=== PATIENT | female | born 1995 | race Caucasian/White ===

== ENCOUNTER → 2018-04-04 | Outpatient (CLI) | payer OTHER ==
--- NOTE | 2018-04-04 17:33 | XR ---
EXAMINATION TYPE: XR finger LT DATE OF EXAM: 04/04/2018 COMPARISON: NONE HISTORY: Injury and pain TECHNIQUE: 3 views FINDINGS: I see no fracture nor dislocation. Joint spaces are normal. There are no pathologic calcifi cations. IMPRESSION: Negative left index finger exam.
== END | disposition home or self-care (01) ==
LOC: RADXRMAIN 16:49
PROVIDERS: ATTEND Emergency Medicine
DX: S67.191A Crushing injury of left index finger, initial encounter (principal)

== ENCOUNTER 2020-10-03 16:55 | Emergency (ER) | payer OTHER ==
[2020-10-03 17:40] VITALS: RESP 18
[2020-10-03 19:04] LABS: Appearance,Urine Clear (Clear); Bacteria,Urine Rare /hpf; Bilirubin,Urine Negative (Negative); Blood,Urine Small (Negative); Color,Urine Light Yellow; Glucose,Urine (UA) Negative (Negative); Ketones,Urine Negative (Negative); Leukocyte Esterase,Urine Negative (Negative); Nitrite,Urine Negative (Negative); PH, Urine 6.5 (5.0-8.0); Protein,Urine Negative (Negative); RBC,Urine 1 /hpf (0-5); Specific Gravity,Urine 1.009 (1.001-1.035); Squamous Epithelial Cell,Urine <1 /hpf (0-4); Urobilinogen,Urine <2.0 mg/dL (<2.0); WBC,Urine 2 /hpf (0-5)
--- NOTE | 2020-10-03 19:28 | ED ---
Female Urogenital HPI - General Chief complaint: Urogenital Stated complaint: bladder problems Time Seen by Provider: 10/03/20 18:30 Source: patient Mode of arrival: ambulatory Limitations: no limitations - History of Present Illness Initial comments: Patient is a 25-year-old female, currently 25 weeks , presenting to the emergency Department with concerns of frequency over the past week and a half. Patient states she has been on Keflex and number of times, most recent was one week ago. She states she continues to have frequency and urgency. She denies any dysuria, no vaginal bleeding. She denies any nausea or vomiting, no fevers or chills. She denies any abdominal pain. This is her second . 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 Kline, they recommended going to urologist, this is scheduled for October 13. Patient is here for recheck. She has no further complaints. Upon arrival to the ER her vitals are stable. - Related Data Previous Rx's Medication Instructions Recorded Cefpodoxime Proxetil [Vantin] 200 mg PO Q12HR 7 Days #14 tab 10/03/20 Allergies Allergy/AdvReac Type Severity Reaction Status Date / Time No Known Allergies Allergy Verified 10/03/20 17:40 Review of Systems ROS Statement: Those systems with pertinent positive or pertinent negative responses have been documented in the HPI. ROS Other: All systems not noted in ROS Statement are negative. Past Medical History Past Medical History: No Reported History Additional Past Medical History / Comment(s): gallbladder issues. and urinary issues History of Any Multi-Drug Resistant Organisms: None Reported Past Surgical History: No Surgical Hx Reported Past Psychological History: No Psychological Hx Reported Smoking Status: Never smoker Past Alcohol Use History: None Reported Past Drug Use History: None Reported General Exam - General Exam Comments Initial Comments: GENERAL: Patient is well-developed and well-nourished. Patient is nontoxic and in no acute distress. HEAD: Atraumatic, normocephalic. EYES: Pupils equal round and reactive to light, extraocular movements intact, sclera anicteric, conjunctiva are normal. Eyelids were unremarkable. ENT: TMs normal, nares patent, oropharynx clear without exudates. Moist mucous membranes. NECK: Normal range of motion, supple without lymphadenopathy or JVD. LUNGS: Unlabored respirations. Breath sounds clear to auscultation bilaterally and equal. No wheezes rales or rhonchi. HEART: Regular rate and rhythm without murmurs, rubs or gallops. ABDOMEN: Soft, nontender, normoactive bowel sounds. No guarding, no rebound. No masses appreciated. : Deferred MUSCULOSKELETAL: Normal extremities with adequate strength and normal range of motion, no pitting or edema. No clubbing or cyanosis. NEUROLOGICAL: Patient is alert and oriented x 3. Motor and sensory are also intact. Cranial nerves II through XII grossly intact. Symmetrical smile. Normal speech, normal gait. PSYCH: Normal mood, normal affect. SKIN: Warm, Dry, normal turgor, no rashes or lesions noted. Limitations: no limitations Course Vital Signs 10/03/20 17:36 Temperature 97.8 F Pulse Rate 96 Respiratory 18 Rate Blood Pressure 144/81 O2 Sat by Pulse 100 Oximetry Medical Decision Making - Medical Decision Making Patient is a 25-year-old female here for urgency and frequency over the past week and a half. She has been on Keflex twice in the past, most recent was last week. Her [employer] G[employer]ER recommended going to see urologist, she has an appointment in 10 days. Her vitals are stable, he'll urine today does show rare bacteria. I recommended treatment with Keflex or patient refuses take this. Given her recent antibiotic exposure, we'll place her on cefpodoxime. Patient will follow up with urology and her [employer]. Return parameters were discussed with her and she verbalized understanding. Case discussed with Dr. Gallegos. - Lab Data Lab Results 10/03/20 Range/Units 18:50 Urine Color Light Yellow Urine Appearance Clear (Clear) Urine pH 6.5 (5.0-8.0) Ur Specific [place] 1.009 (1.001-1.035) Urine Protein Negative (Negative) Urine Glucose (UA) Negative (Negative) Urine Ketones Negative (Negative) Urine Blood Small H (Negative) Urine Nitrite Negative (Negative) Urine Bilirubin Negative (Negative) Urine Urobilinogen <2.0 (<2.0) mg/dL Ur Leukocyte Esterase Negative (Negative) Urine RBC 1 (0-5) /hpf Urine WBC 2 (0-5) /hpf Ur Squamous Epith Cells <1 (0-4) /hpf Urine Bacteria Rare H (None) /hpf Disposition Clinical Impression: Asymptomatic bacteriuria during Disposition: HOME SELF-CARE Condition: Stable Instructions (If sedation given, give patient instructions): Urinary Urgency and Frequency (DC) Additional Instructions: Please return to the Emergency Department if symptoms worsen or any other concerns. Take antibiotic as prescribed. Follow up with your [employer] and urology as discussed. Prescriptions: Cefpodoxime Proxetil [Vantin] 200 mg PO Q12HR 7 Days #14 tab Is patient prescribed a controlled substance at d/c from ED?: No Referrals: Randy Cisneros MD [Primary Care Provider] - 1-2 days Time of Disposition: 19:28
[2020-10-03 19:46] VITALS: BP 133/79; PULSE 83; TEMP 97.9
== END 2020-10-03 19:46 | disposition home or self-care (01) ==
LOC: EC 16:55 → MERGE 16:55 → EC 19:46
DX: O23.92 Unspecified genitourinary tract infection in pregnancy, second trimester (principal); Z3A.25 25 weeks gestation of pregnancy
CPT/HCPCS: 81001; 99283

== ENCOUNTER → 2024-06-01 | Outpatient (CLI) | payer OTHER ==
--- NOTE | 2024-06-02 08:27 | MR ---
EXAMINATION TYPE: MR forearm RT wo con DATE OF EXAM: 06/01/2024 9:02 PM COMPARISON: None. CLINICAL INDICATION: Female, 28 years old with history of R22.31 LOCALIZED SWELLING, MASS AND LUMP; P HH, Right forearm pain, swelling, clicking x1 month, Injured fell on hand while skating TECHNIQUE: MR forearm RT wo con; Multiplanar, multisequence technique was utilized in order to study. FINDINGS: There is subcutaneous streaky edema in the area of concern. The tendons and muscles in this region are within normal appearance, no evidence for tendon tear. No distended bursae are identified . The bone marrow signal intensity is within normal limits. No evidence organizing fluid collection or soft tissue mass. Muscle volume is appropriate. IMPRESSION: Subcutaneous edema in the area of concern without evidence for tendon rupture or tear. No evidence for organizing fluid collection or mass. No evidence for tendon tear or rupture. [facility], , 06/02/2024 8:25 AM
== END | disposition home or self-care (01) ==
LOC: RADMRIMAIN 19:32
PROVIDERS: ATTEND Family Medicine
DX: R22.31 Localized swelling, mass and lump, right upper limb (principal)

== ENCOUNTER → 2024-11-26 | Outpatient (CLI) | payer OTHER ==
[2024-11-26 15:27] LABS: Rheumatoid Factor, Qnt <15 IU/mL (0-15)
== END | disposition home or self-care (01) ==
LOC: LABWHC1 08:12
PROVIDERS: ATTEND Family Medicine
DX: R79.82 Elevated C-reactive protein (CRP) (principal)
CPT/HCPCS: 36415; 85652; 86038; 86140; 86431